=== PATIENT | male | born 1985 | race Caucasian/White ===

== ENCOUNTER 2025-05-16 09:43 | Emergency (ER) | payer BC, SELFPAY ==
[2025-05-16 09:57] VITALS: BP 149/93; BMI 19.9
[2025-05-16] MEDS: TORADOL 30 MG IM (10:18)
--- NOTE | 2025-05-16 11:07 | ED.MUSCINJ ---
HPI-Injury
General
Chief Complaint: Musculo-Skeletal Complaint
Source: patient
Exam Limitations: none
Time Seen by Provider: 05/16/25 10:52
Nursing documentation reviewed up to this point in time: agreed with
History of Present Illness-Injury
Initial Injury comments:
40-year-old male with history GERD, presents for neck pain. He states his neck pain started yesterday after he got out of his truck and was unloading his tools. He admits that he was doing 'a lot a very heavy lifting' of large heavy cabinets over
the previous week. The neck pain is worse when he rotates his head to the left. He denies numbness or tingling or weakness in his arms. He has taken Tylenol with no relief. In triage he was given a shot of Toradol and states it is starting to
help the pain.
Past History
Past History
ED Past Medical History: GERD
ED Past Surgical History: Other (This was some days, myringotomy)
Social History
Tobacco: Non-smoker
Alcohol: Occasional
Personal:
Living: with family
Employment: Employed ([employer])
Review of Systems
Review of Systems
Allergies reviewed?: Yes
All Other Systems: ROS reviewed and negative except as documented in HPI and ROS
Phy Exam
Physical Exam
Physical Exam:
PHYSICAL EXAMINATION:
General: no apparent distress, not acutely ill
Neuro: alert and oriented.
Psychiatric: well kept. interactive and cooperative
Musculoskeletal: Tender to palpate bilateral lower paracervical soft tissues. Mildly limited range of motion of neck with pain aggravated when neck is rotated to the left. Moves with ease. Distal neurovascular intact.
Skin: Warm, pink.
Injury Course
Orders/Labs/Results
Orders:
Orders
05/16/25 10:05
Cervical Spine 4 or 5 Vw [CR Cervical Spine 4 Or 5 Vw] Urgent
Comment:
Reason For Exam: neck pain no injury
05/16/25 10:07
Ketorolac [Toradol] 30 mg IM NOW STA
MDM/Problems Addressed
Differential Diagnosis Includes:
Cervical strain
MDM/Problems Addressed:
40-year-old male with history GERD, presents for neck pain. He states his neck pain started yesterday after he got out of his truck and was unloading his tools. He admits that he was doing 'a lot a very heavy lifting' of large heavy cabinets over
the previous week. The neck pain is worse when he rotates his head to the left. He denies numbness or tingling or weakness in his arms. He has taken Tylenol with no relief. In triage he was given a shot of Toradol and states it is starting to
help the pain.
Cervical spine x-ray reveals no abnormality.
Patient was hesitant to take ibuprofen as it makes his reflux worse, he is willing to take it once a day since the Toradol helped and instructed to take it with food and his pantoprazole once a day, continue Tylenol and try the cyclobenzaprine. He
is comfortable with this plan.
*Pulse Oximetry
SaO2: 100
Oxygen Mode of Delivery: Room air
Patient hypoxic: not evaluated
*Critical Care Note
Total Time (30-74mins, 75-104mins- exclusive of procedures): Not Applicable
ED Attending Note
-
Portions of this chart may have been created with voice recognition software.� Occasional wrong word or��sound alike� substitutions may have occurred due to the inherent limitations of voice recognition software.
Discharge Plan
Departure
Patient Disposition: Home (Routine Discharge)
Date of Disposition: 05/16/25
Time of Disposition: 11:04
Patient with high blood pressure during this ER visit?: No
Condition: Good
Discharge Problem:
Acute cervical myofascial strain
Instructions: Cervical Sprain ED
Prescriptions:
New
cyclobenzaprine 10 mg tablet
10 mg PO BID PRN (Reason: neck/back pain/spasms) Qty: 14 0RF
No Action
pantoprazole 40 mg Tablet,Delayed Release (Dr/Ec)
40 mg PO DAILY PRN (Reason: reflux)
Referrals:
[facility] - [place]] - As needed
Activity Restrictions/Additional Instructions:
As we discussed, Tylenol ibuprofen as needed for pain.
I sent a prescription to your pharmacy for Flexeril (cyclobenzaprine) to use as needed for muscle spasm or tightness in the neck or back. It can make you sleepy and slow the reflexes so do not drive or operate any machinery within 8 hours of taking
it.
You may alternate cold compresses with warm compresses and stick with whichever feels better.
Avoid activity that aggravates the pain.
See your doctor if your neck is not much improved within the next 2 weeks.
Interventions
Interventions:
*Risk Screen - Suicide Last Done: 05/16/25 09:57
*General Assessment Last Done: 05/16/25 09:57
*Neglect/Abuse Screening Last Done: 05/16/25 09:57
*ED- Fall Risk Assessment Last Done: 05/16/25 09:57
*ED COVID-19 Vaccine History Last Done: 05/16/25 09:57
*ED Influenza Vaccine History Last Done: 05/16/25 09:57
*Nursing Disposition Last Done: 05/16/25 11:37
ED-Musculoskeletal Assessment Last Done: 05/16/25 10:57
Discharge Date and Time
Discharge Date/Time: 05/16/25 11:38
Print Language: TANZANIAN
== END 2025-05-16 11:38 | disposition home or self-care (01) ==
LOC: EMR 09:43
PROVIDERS: EMERGENCY PHYSICIAN Emergency Medicine; FAMILY PHYSICIAN Family Medicine
DX: S16.1XXA Strain of muscle, fascia and tendon at neck level, initial encounter (principal); X50.0XXA Overexertion from strenuous movement or load, initial encounter; K21.9 Gastro-esophageal reflux disease without esophagitis
CPT/HCPCS: 99284; 96372; 72050